=== PATIENT | male | born 1955 | race Caucasian/White ===

== ENCOUNTER 2021-09-07 10:23 | Emergency (ER) | payer OTHER, SELFPAY ==
[2021-09-07 10:41] VITALS: BP 144/62; PULSE 55; RESP 18; TEMP 36.5; O2SAT 100
--- NOTE | 2021-09-07 10:52 | ED.GENADULT ---
HPI - General Adult General Chief complaint: Dizziness Stated complaint: dizziness Source: patient and RN notes reviewed Mode of arrival: ambulatory Limitations: no limitations History of Present Illness HPI narrative: 66-year-old male presented for complaint of dizziness, onset yesterday. He endorses dizziness is worse with head positions or pulling on the right ear. States it feels like he got off of a roller coaster. Described as 'swoopy.' Endorses one episode of nausea and vomiting this morning. Diagnosis of Covid 3 weeks ago and has had intermittent dizziness since. gave him homeopathic carsickness medication which has helped today. Denies associated vision changes, eye pain, chest pain, palpitations, diarrhea, headache, sinus pressure congestion, fever or chills. Denies significant medical history. Scheduled with PCP in 4 days. Related Data Allergies Allergy/AdvReac Type Severity Reaction Status Date / Time No Known Allergies Allergy Verified 09/07/21 10:52 Review of Systems Review of Systems: CONSTITUTIONAL: Endorses dizziness, Denies body aches, fever, chills, or sweats. EYES: Denies redness, or discharge. ENT: Denies rhinorrhea, congestion, sore throat, or otalgia. CARDIOVASCULAR: Denies chest pain, palpitations, or edema. RESPIRATORY: Denies cough or dyspnea. GASTROINTESTINAL: Endorses nausea, vomiting, Denies abdominal pain or diarrhea. GENITOURINARY: Denies dysuria or hematuria. SKIN: Denies rash, itching, or wounds. MUSCULOSKELETAL: Denies back pain, joint pain, or myalgia. NEUROLOGIC: Denies headache, numbness, tingling, or weakness. PSYCH: Denies depression or anxiety. All systems reviewed & are unremarkable except as noted in HPI and below PMFSH Comments At time of signature, I have reviewed and agree with nursing past medical, surgical, social and family history unless otherwise noted. Please see nursing chart for further information. There is no relevant family history pertinent to the presenting complaint Exam Narrative: GENERAL: Well-appearing, well-nourished, and in no acute distress. Afebrile HEAD: Normocephalic, atraumatic. EYES: EOMI. no decreased visual acuity or visual field deficit; No anisocoria, nystagmus, ptosis, or photophobia ENT: Mucous membranes pink and moist. No rhinorrhea. TMs normal bilaterally. Throat normal. Uvula midline. NECK: Normal AROM. Supple. No nuchal rigidity. No lymphadenopathy. CHEST: No respiratory distress. Clear to auscultation. HEART: Regular rate and rhythm. No murmur appreciated. Normal peripheral pulses. ABDOMEN: Soft, nontender, nondistended, normal active bowel sounds. MUSCULOSKELETAL: No bony tenderness. EXTREMITIES: Normal range of motion. No edema. SKIN: Warm, dry, no rash. Capillary refill normal. Normal skin turgor. NEURO: Unsteady gait due to dizziness, no focal deficits. Alert and oriented x 3 No lethargy, no seizure activity PSYCH: Normal affect. Course Course Emergency Course: Patient reassessed after meclizine given, patient is able to ambulate with steady gait without any assist and endorses feeling much better. Patient's vertigo is felt to be likely peripheral in origin. there is no diplopia, dysarthria, or dysphagia, nystagmus. Patients gait is stable and there are no focal neurological deficits on exam. Risk for central causes has been reviewed. Patient felt likely reasonable for continued outpatient management and risks are felt to outweigh benefits for further imaging studies at this time. Patient is aware of diagnosis, understands and agrees to treatment plan. Anticipatory guidance given. Patient agrees to follow-up as directed and is aware of reasons to seek care at the emergency department. Portions of this record may have been created with voice recognition software Level of Care: Express Care Visit Vital Signs Vital signs: Vital Signs Temperature 97.7 F 09/07/21 10:41 Pulse Rate 55 L 09/07/21 10:41 Respiratory Rate
[2021-09-07] MEDS: MECLIZINE HCL 25 MG TABLET PO (10:55)
== END 2021-09-07 11:32 | disposition home or self-care (01) ==
PROVIDERS: Emergency Provider Nurse Practitioner Family; PCP Internal Medicine
DX: H81.11 Benign paroxysmal vertigo, right ear (principal)
CPT/HCPCS: 99213; A9270; G0463

== ENCOUNTER 2024-03-21 11:06 | Emergency (ER) | payer MEDICARE, SELFPAY ==
[2024-03-21 11:17] VITALS: BP 119/71; PULSE 68; RESP 16; TEMP 36.8; O2SAT 99
--- NOTE | 2024-03-21 11:26 | ED.DENTAL ---
HPI - Dental/Oral General Chief complaint: Dental/Oral Stated complaint: Jaw Numbness Time Seen by Provider: 03/21/24 11:26 Source: patient Mode of arrival: ambulatory History of Present Illness HPI Narrative: 69-year-old male presented for complaint of right lower jaw swelling and ?numbness? for about 20 minutes prior to arrival. Denies second pain to the site. He endorses about a month ago at the dentist he was told he has multiple caries and needs tooth extracted at the site of swelling. He is scheduled with dentist does not know when. Denies difficulty swallowing, redness or swelling chin, decreased range of motion to the neck, nausea vomiting, fevers or chills. MD Complaint: tooth pain Related Data Home Medications Medication Instructions Recorded Confirmed amlodipine 10 mg tablet 10 mg PO DAILY 07/16/23 03/21/24 rosuvastatin 5 mg tablet 5 mg PO DAILY 07/16/23 03/21/24 sildenafil 50 mg tablet 50 mg PO PRN PRN Erectile 03/21/24 03/21/24 Dysfunction Allergies Allergy/AdvReac Type Severity Reaction Status Date / Time No Known Allergies Allergy Verified 03/21/24 11:11 Review of Systems Review of Systems: CONSTITUTIONAL: Denies body aches, fever, chills ENT: Denies rhinorrhea, congestion, sore throat, or otalgia. Reports jaw swelling CARDIOVASCULAR: Denies chest pain, palpitations RESPIRATORY: Denies cough or dyspnea. SKIN: Denies rash, itching, or wounds. MUSCULOSKELETAL: Denies myalgia. NEUROLOGIC: Denies headache, numbness, tingling, or weakness. [facility] Past Medical History Medical History (Updated 03/21/24 @ 11:39 by Nikki Snow APRN) Hypertension Family History Family History Father Hypertension Heart disease Mother Hypertension Heart disease Sibling Diabetes mellitus Hypertension Social History Social History Smoking status: Never smoker Smoking end date: 07/29/81 Alcohol intake: never Substance use: never Substance use type: does not use Do You Feel Safe in your Home?: No Lack of Transportation: No Lack of Food: Never True Current Housing: I Have Housing Concerned About Future Housing: No Difficulty Paying Gas/Electric Bills: No Difficulty Paying for Meds: No Currently Unemployed: No Education: High School Diploma/GED Difficulty w/ Childcare or Family Care: No Comments At time of signature, I have reviewed and agree with nursing past medical, surgical, social and family history unless otherwise noted. Please see nursing chart for further information. There is no relevant family history pertinent to the presenting complaint Exam Narrative: GENERAL: well appearing no acute distress. HEAD: Normocephalic, atraumatic. EYES: EOMI. No redness or drainage. Conjunctivae normal. ENT: Right mandibular swelling location of #29,30,31; no apparent erythema or swelling to gums, nontender, no drainage. Mild tenderness to the site of swelling Mucous membranes pink and moist. TMs normal bilaterally. Throat normal. Uvula midline. no dysphagia, odynophagia, dysphonia, or dyspnea NECK: Normal AROM. No lymphadenopathy. no induration below mandible, no neck pain. CHEST: No respiratory distress. Clear to auscultation. HEART: Regular rate and rhythm. No murmur appreciated. SKIN: Warm, dry, no rash bruising or erythema to site of jaw swelling. Normal skin turgor. NEURO: No focal deficits. Course Course Emergency Course: Patient is aware of diagnosis, understands and agrees to treatment plan. Anticipatory guidance given. Patient agrees to follow-up as directed and is aware of reasons to seek care at the emergency department. Portions of this record may have been created with voice recognition software Level of Care: Express Care Visit Vital Signs Vital signs: Vital Signs Temperature 98.2 F 03/21/24 11:17 Pulse Rate 68 0
== END 2024-03-21 11:36 | disposition home or self-care (01) ==
PROVIDERS: Emergency Provider Nurse Practitioner Family; PCP Internal Medicine
DX: K02.9 Dental caries, unspecified (principal); I10 Essential (primary) hypertension
CPT/HCPCS: 99213; G0463